=== PATIENT | male | born 1990 | race Caucasian/White ===

== ENCOUNTER 2024-02-15 18:08 | Emergency (ER) | payer SELFPAY ==
[2024-02-15] MEDS ORDERED: Ondansetron PF 4 MG/2 ML Vial ONE (18:22)
== END 2024-02-15 22:02 | disposition home or self-care (01) ==
LOC: ERS 18:08
DX: F19.90 Other psychoactive substance use, unspecified, uncomplicated (principal); F17.210 Nicotine dependence, cigarettes, uncomplicated; F17.290 Nicotine dependence, other tobacco product, uncomplicated; Z55.0 Illiteracy and low-level literacy
CPT/HCPCS: 96374; J2405